=== PATIENT | male | born 1960 | race Caucasian/White ===

== ENCOUNTER → 2016-04-21 | Outpatient (CLI) | payer MEDICARE, OTHER ==
[~2016-04-21] MED LIST: AMLO2.5T PO; ASPI81 PO; CLIN1CAP6 PO; FOSR1000 CHEW; FURO80 PO; LANTUSP SQ; LORA1TAB PO; METO25 PO; NEPHRO PO; PROT40TA PO; SILV1CRE59 TOP; SIMV40TA PO; SODI650T PO; ZITH200S PO
[2016-04-21 12:05] LABS: ANION GAP 15 MEQ/L (5-15); BICARBONATE 22.5 MEQ/L (21.0-32.0); BLOOD UREA NITROGEN 102 MG/DL (7-18); CHLORIDE 98 MEQ/L (98-107); FREE T4 0.81 NG/DL (0.76-1.46); GLOMERULAR FILTRATION RATE 4 ML/MIN (>89); GLUCOSE,FASTING 161 MG/DL (74-99); POTASSIUM 5.8 MEQ/L (3.5-5.1); SODIUM (NA) 135 MEQ/L (136-145)
[2016-04-21 13:22] LABS: HEMOGLOBIN A1a 1.1 %; HEMOGLOBIN A1b 2.1 %; HEMOGLOBIN Ao 83.2 %; HEMOGLOBIN LA1C 2.7 %; HEMOGLOBIN P3 6.2 %
== END ==
LOC: CLAB 11:12
DX: E03.9 Hypothyroidism, unspecified (principal); E11.65 Type 2 diabetes mellitus with hyperglycemia
CPT/HCPCS: 36415; 80048; 83036; 84439; 84443

== ENCOUNTER → 2016-07-02 | Outpatient (CLI) | payer MEDICARE, OTHER ==
--- NOTE | 2016-07-02 11:52 | RADRPT ---
EXAM DATE/TIME: 07/02/2016 11:17 [place] COMPARISON: No previous studies available for comparison. INDICATIONS : Cough and wheezing MEDICAL HISTORY : Chronic obstructive pulmonary disease. SURGICAL HISTORY : None. ENCOUNTER: Initial ACUITY: 1 week PAIN SCORE: 0/10 LOCATION: chest FINDINGS: The heart is enlarged. There are COPD changes within the pulmonary parenchyma. The visualized bony st ructures demonstrate degenerative changes in the shoulders bilaterally. Incidental note is made of a stent overlying the left upper chest likely in the left axillary artery or vein. A CONCLUSION: 1. Cardiomegaly and chronic interstitial changes consistent with COPD. No acute abnormality. Carroll Anders MD on July 02, 2016 at 11:48 Board Certified Radiologist. This report was verified electronically.
--- NOTE | 2016-07-08 10:25 | RSPPFT ---
DATE OF PROCEDURE: 07/02/16 COMMENTS: Spirometry demonstrates an FEV1 of 1.4 at 43% of predicted, FVC of 2.1 at 44%, FEF 25-75 at 27%. Post-bronchodilator study demonstrated no significant change. Lung volumes demonstrated a raised RV/TLC ratio indicating hyperinflation with air trapping. Diffusion capacity is mildly reduced. Flow volume loops suggest an obstructive pattern. IMPRESSION: 1. Moderate obstructive disease. 2. No significant change following use of bronchodilator. 3. Mild reduction in diffusion capacity.
== END ==
LOC: HRSP 10:16
DX: J44.9 Chronic obstructive pulmonary disease, unspecified (principal); N19 Unspecified kidney failure
CPT/HCPCS: 71020; 94060; 94726; 94729

== ENCOUNTER → 2016-07-22 | Outpatient (CLI) | payer MEDICARE, OTHER ==
[2016-07-22 09:57] LABS: FREE T4 0.97 NG/DL (0.76-1.46); GLUCOSE,FASTING 114 MG/DL (74-99)
[2016-07-22 16:39] LABS: HEMOGLOBIN Ao 83.9 %; HEMOGLOBIN LA1C 2.3 %
== END ==
LOC: CLAB 08:54
DX: E03.9 Hypothyroidism, unspecified (principal); E11.65 Type 2 diabetes mellitus with hyperglycemia
CPT/HCPCS: 36415; 82947; 83036; 84439; 84443

== ENCOUNTER → 2016-10-21 | Outpatient (CLI) | payer MEDICARE, OTHER ==
[2016-10-21 09:20] LABS: GLUCOSE,FASTING 107 MG/DL (74-99)
[2016-10-21 09:33] LABS: FREE T4 0.96 NG/DL (0.76-1.46)
[2016-10-21 19:03] LABS: HEMOGLOBIN A1a 1.2 %; HEMOGLOBIN A1b 2.1 %; HEMOGLOBIN Ao 82.7 %; HEMOGLOBIN LA1C 1.9 %; HEMOGLOBIN P3 6.2 %
== END ==
LOC: CLAB 08:27
DX: E11.65 Type 2 diabetes mellitus with hyperglycemia (principal); E03.9 Hypothyroidism, unspecified
CPT/HCPCS: 36415; 82947; 83036; 84439; 84443

== ENCOUNTER → 2017-02-12 | Outpatient (CLI) | payer MEDICARE, OTHER ==
[2017-02-12 11:20] LABS: HEMOGLOBIN A1C 6.7 % (4.3-6.0)
[2017-02-12 11:46] LABS: BICARBONATE 24.1 MEQ/L (21.0-32.0); BLOOD UREA NITROGEN 41 MG/DL (7-18); CALCIUM 8.5 MG/DL (8.5-10.1); CHLORIDE 105 MEQ/L (98-107); GLOMERULAR FILTRATION RATE 9 ML/MIN (>89); GLUCOSE,FASTING 71 MG/DL (74-99); SODIUM (NA) 141 MEQ/L (136-145)
[2017-02-12 11:55] LABS: FREE T4 0.84 NG/DL (0.76-1.46)
== END ==
LOC: CLAB 09:34
DX: E11.65 Type 2 diabetes mellitus with hyperglycemia (principal); E03.9 Hypothyroidism, unspecified
CPT/HCPCS: 36415; 80048; 83036; 84439; 84443

== ENCOUNTER → 2017-04-30 | Outpatient (CLI) | payer MEDICARE, OTHER ==
--- NOTE | 2017-05-05 10:22 | RSPPFT ---
DATE OF PROCEDURE: 04/30/17 COMMENTS: Spirometry demonstrates an FEV1 of 1.9 at 52% of predicted, FVC of 2.5 at 56%, FEF 25-75 is 39%. Post-bronchodilator study demonstrated mild improvements in the FVC. Lung volumes demonstrated a raised RV/TLC ratio indicating hyperinflation with air trapping. TLC is reduced. Diffusion capacity is mildly reduced. Flow volume loops suggest an obstructive defect. IMPRESSION: 1. Mild to moderate obstructive disease. 2. Mild response to use of bronchodilator indicating some reversibility. 3. Mild reduction in diffusion capacity. 4. Additional mild to moderate restrictive disease.
== END ==
LOC: HRSP 09:56
DX: J44.9 Chronic obstructive pulmonary disease, unspecified (principal); R06.00 Dyspnea, unspecified; E11.9 Type 2 diabetes mellitus without complications
CPT/HCPCS: 94060; 94726; 94729

== ENCOUNTER → 2017-09-08 | Outpatient (CLI) | payer MEDICARE, OTHER ==
[2017-09-08 09:45] LABS: CALCIUM 8.4 MG/DL (8.5-10.1); CHLORIDE 97 MEQ/L (98-107); SODIUM (NA) 137 MEQ/L (136-145)
[2017-09-08 10:57] LABS: ALBUMIN 3.4 GM/DL (3.4-5.0); ALT (GPT) 23 U/L (12-78); AST (GOT) 17 U/L (15-37); BICARBONATE 25.7 MEQ/L (21.0-32.0); BLOOD UREA NITROGEN 61 MG/DL (7-18); CREATININE 9.89 MG/DL (0.60-1.30); GLOMERULAR FILTRATION RATE 5 ML/MIN (>89); GLUCOSE,FASTING 196 MG/DL (74-99)
[2017-09-08 11:03] LABS: ALKALINE PHOSPHATASE 111 U/L (45-117); CHOLESTEROL 134 MG/DL (120-200); CHOLESTEROL/ HDL RATIO 4.42 RATIO; HDL CHOLESTEROL 30.3 MG/DL (40.0-60.0); LDL CHOLESTEROL 27 MG/DL (0-99); TOTAL BILIRUBIN ADULT 0.4 MG/DL (0.2-1.0); TOTAL PROTEIN 7.3 GM/DL (6.4-8.2); TRIGLYCERIDES 383 MG/DL (42-150)
[2017-09-08 16:24] LABS: HEMOGLOBIN A1C 7.4 % (4.3-6.0)
== END ==
LOC: CLAB 08:45
PROVIDERS: ATTEND Internal Medicine Endocrinology, Diabetes & Metabolism
DX: E11.65 Type 2 diabetes mellitus with hyperglycemia (principal)
CPT/HCPCS: 36415; 80053; 80061; 83036